=== PATIENT | male | born 1995 | race Caucasian/White ===

== ENCOUNTER 2018-07-02 19:05 | Emergency (ER) | payer MEDICAID ==
[~2018-07-02] VITALS: Ht 172.7 cm; Wt 64.0 kg
[2018-07-02] MEDS ORDERED: BACITRACIN ZINC OINT UDPKT TOP ONE (19:45)
[2018-07-02] MEDS ORDERED: TETANUS, DIPHTHERIA, PERTUSSIS VAC/PF 0.5ML (>7YR OLD) IM ONE (19:45)
[2018-07-02] MEDS ORDERED: LIDOCAINE HCL 1% 20ML VIAL (Pyxis) INJ INFIL ONE (19:45)
[2018-07-02] MEDS ORDERED: LORAZEPAM 1MG TABLET PO ONE (20:15)
[2018-07-02 20:50] VITALS: BP 118/89
== END 2018-07-02 20:50 | disposition home or self-care (01) ==
LOC: ER 19:05
DX: S61.011A Laceration without foreign body of right thumb without damage to nail, initial encounter (principal); F12.10 Cannabis abuse, uncomplicated; W26.0XXA Contact with knife, initial encounter; Y93.89 Activity, other specified; Y92.018 Other place in single-family (private) house as the place of occurrence of the external cause
CPT/HCPCS: 12002; 90471; 90715; 99283; A4217; J3490; Z7610; A4565

== ENCOUNTER 2018-07-25 12:26 | Emergency (ER) | payer MEDICAID ==
[~2018-07-25] VITALS: Ht 167.6 cm; Wt 73.0 kg
[2018-07-25 12:56] VITALS: BP 138/75
== END 2018-07-25 15:25 | disposition home or self-care (01) ==
LOC: ER 12:26
DX: Z48.00 Encounter for change or removal of nonsurgical wound dressing (principal); F12.10 Cannabis abuse, uncomplicated
CPT/HCPCS: 99281